=== PATIENT | female | born 1980 | race African-American/Black ===

== ENCOUNTER 2022-12-04 10:58 | Emergency (ER) | payer OTHER ==
[~2022-12-04] VITALS: Ht 167.6 cm; Wt 171.0 kg
[2022-12-04] MEDS ORDERED: ASPIRIN 81 MG CHEW TAB PO ONE (11:45)
[2022-12-04 11:55] LABS: BASOPHILS % 0.3 % (0.0-1.0); EOSINOPHILS # (AUTO) 0.1 (0.0-0.4); EOSINOPHILS % 1.8 % (0.0-6.0); HEMATOCRIT 39.2 % (34.2-44.1); HEMOGLOBIN 12.4 g/dL (12.0-16.0); LYMPHOCYTES # (AUTO) 2.8 (1.0-3.2); LYMPHOCYTES % 37.2 % (18.0-39.1); MEAN CORPUSCULAR HGB CONC 31.6 g/dL (31-35); MEAN CORPUSCULAR VOLUME 82.2 fL (81-99); MONOCYTES # (AUTO) 0.3 (0.2-0.8); MONOCYTES % 3.4 % (4.4-11.3); NEUTROPHILS # (AUTO) 4.4 (2.1-6.9); PLATELET COUNT 323 x10e3/uL (140-360); RED BLOOD COUNT 4.77 x10e6/uL (3.6-5.1); RED CELL DISTRIBUTION WIDTH 14.4 % (11.7-14.4)
[2022-12-04 12:14] LABS: ALBUMIN 3.5 g/dL (3.5-5.0); ANION GAP 13.8 mmol/L (8-16); CALCIUM 8.8 mg/dL (8.4-10.2); CREATININE, SERUM 0.86 mg/dL (0.57-1.11); POTASSIUM 3.8 mmol/L (3.5-5.1)
[2022-12-04 14:12] VITALS: O2SAT 99
== END 2022-12-04 14:53 | disposition home or self-care (01) ==
LOC: ER 11:10
DX: R07.89 Other chest pain (principal); E11.65 Type 2 diabetes mellitus with hyperglycemia; I10 Essential (primary) hypertension; E78.5 Hyperlipidemia, unspecified; F41.9 Anxiety disorder, unspecified; R94.31 Abnormal electrocardiogram [ECG] [EKG]; F17.210 Nicotine dependence, cigarettes, uncomplicated
CPT/HCPCS: 36415; 71045; 80053; 82550; 84484; 85025; 93005; 99284

== ENCOUNTER 2024-10-21 12:10 | Emergency (ER) | payer OTHER ==
[~2024-10-21] VITALS: Ht 167.6 cm; Wt 175.1 kg
[2024-10-21 12:42] VITALS: TEMP 98.7
[2024-10-21] MEDS: DICYCLOMINE HCL 20 MG/2 ML VIAL IM ONE (13:16)
[2024-10-21] MEDS: SODIUM CHLORIDE 0.9% 1000ML 1,000 ML IV STA (13:16)
[2024-10-21] MEDS: KETOROLAC TROMETHAMINE 30 MG/ML VIAL IV STA (13:16)
[2024-10-21] MEDS: ONDANSETRON HCL INJ 2MG/ML 2ML 2 MG/ML VIAL IV STA (13:16)
[2024-10-21 13:20] LABS: BASOPHILS % 0.3 % (0.0-1.0); EOSINOPHILS % 0.3 % (0.0-6.0); HEMATOCRIT 40.8 % (34.2-44.1); HEMOGLOBIN 13.2 g/dL (12.0-16.0); LYMPHOCYTES # (AUTO) 3.1 (1.0-3.2); LYMPHOCYTES % 27.9 % (18.0-39.1); MEAN CORPUSCULAR HEMOGLOBIN 25.8 pg (28-32); MEAN CORPUSCULAR HGB CONC 32.4 g/dL (31-35); MEAN CORPUSCULAR VOLUME 79.8 fL (81-99); MONOCYTES # (AUTO) 0.4 (0.2-0.8); NEUTROPHILS # (AUTO) 7.5 (2.1-6.9); NEUTROPHILS % 67.2 % (38.7-80.0); PLATELET COUNT 269 x10e3/uL (140-360); RED BLOOD COUNT 5.11 x10e6/uL (3.6-5.1); RED CELL DISTRIBUTION WIDTH 15.1 % (11.7-14.4); WHITE BLOOD COUNT 11.13 x10e3/uL (4.8-10.8)
[2024-10-21 13:33] LABS: BILIRUBIN,URINE NEGATIVE (NEGATIVE); CLARITY,URINE HAZY (CLEAR); COLOR,URINE YELLOW (YELLOW); GLUCOSE, URINE NEGATIVE (NEGATIVE); KETONES,URINE NEGATIVE (NEGATIVE); LEUKOCYTE ESTERASE ,URINE LARGE (NEGATIVE); NITRITE,URINE NEGATIVE (NEGATIVE); PH,URINE 7.5 (5 - 7); PROTEIN,URINE DIPSTICK 1+ (NEGATIVE); URINE UROBILINOGEN 0.2 mg/dL (0.2 - 1)
[2024-10-21 13:36] LABS: BACTERIA,URINE MANY /HPF; EPITHELIAL CELLS,URINE MANY /LPF
[2024-10-21 13:41] LABS: ALANINE AMINOTRANSFERASE 14 IU/L (0-55); ALBUMIN 3.7 g/dL (3.5-5.0); ALKALINE PHOSPHATASE 71 IU/L (40-150); ANION GAP 16.8 mmol/L (8-16); BILIRUBIN,TOTAL 0.5 mg/dL (0.2-1.2); BLOOD UREA NITROGEN 11 mg/dL (7-26); BUN/CREATININE RATIO 14 (6-25); CALCIUM 9.6 mg/dL (8.4-10.2); CARBON DIOXIDE 21 mmol/L (22-29); CHLORIDE 105 mmol/L (98-107); CREATININE, SERUM 0.79 mg/dL (0.57-1.11); EST GLOMERULAR FILTRATION RATE 94 ML/MIN (>=60); GLUCOSE 129 mg/dL (74-118); POTASSIUM 3.8 mmol/L (3.5-5.1); SODIUM 139 mmol/L (136-145); TOTAL PROTEIN 7.4 g/dL (6.5-8.1)
[2024-10-21 13:49] LABS: TROPONIN I < 0.001 ng/mL (0-0.300)
[2024-10-21] MEDS ORDERED: IOPAMIDOL 370 MG/ML 100 ML INFUS..BTL INJ ONE (14:48)
[2024-10-21 15:02] LABS: INR 0.95; PROTHROMBIN TIME 13.5 seconds (11.9-14.5)
[2024-10-21 18:38] VITALS: PULSE 67; RESP 16; O2SAT 99
[2024-10-21] MEDS: HYDROCODONE/APAP 7.5MG-325MG 1 EA TAB PO ONE (19:22)
[2024-10-21] MEDS ORDERED: DICYCLOMINE HCL20 MG PO (19:26)
[2024-10-21] MEDS ORDERED: CIPRO500 MG PO (19:26)
[2024-10-21] MEDS ORDERED: ONDANSETRON ODT4 MG PO (19:26)
[2024-10-21] MEDS ORDERED: METRONIDAZOLE500 MG PO (19:26)
== END 2024-10-21 19:41 | disposition home or self-care (01) ==
LOC: ER 12:38
DX: R10.31 Right lower quadrant pain (principal); K52.9 Noninfective gastroenteritis and colitis, unspecified; N83.201 Unspecified ovarian cyst, right side; R16.0 Hepatomegaly, not elsewhere classified; K76.0 Fatty (change of) liver, not elsewhere classified; R94.31 Abnormal electrocardiogram [ECG] [EKG]
CPT/HCPCS: 36415; 71045; 74177; 80053; 81001; 84484; 84702; 85025; 85610; 85730; 87086; 93005; 99284; J0500; J1885; J2405; J7030; Q9967